=== PATIENT | female | born 1975 | race Caucasian/White ===

== ENCOUNTER 2017-03-29 10:39 | Emergency (ER) | payer BC, MEDICAID ==
[2017-03-29] MEDS ORDERED: HYDROmorphone 2 MG/ML SDV IVPUSH ONE (10:55)
[2017-03-29] MEDS ORDERED: Sodium Chloride 0.9% 1,000 ML IV SCH (11:00)
--- NOTE | 2017-03-29 11:13 | EDM.PDOC ---
ED HPI GENERAL MEDICAL PROBLEM - General Stated Complaint: MISCARRIAGE Time Seen by Provider: 03/29/17 10:49 Source of Information: Reports: Patient, Family History Limitations: Reports: Other (pelvic pain) - History of Present Illness INITIAL COMMENTS - FREE TEXT/NARRATIVE: 41 y.o w f 7 was seen a OB saford on Sunday, US showed a 6 week ols baby, by adte 9 weeks, no active bleed at hat time. this am, pt felt acute pelvic pain with vag bleed. BP 109/90 puls 87. no trauma. no drugs, no ETOH. pt stated she passed blood and tissue. she rate the pain as 10/10. 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 No N/V/D or any other acute medical issues. Onset: Today, Sudden Onset Date: 03/29/17 Onset Time: 04:00 Duration: Hour(s): Location: Reports: Pelvis Quality: Reports: Ache, Burning Severity: Severe Improves with: Reports: Medication Worsens with: Reports: Movement Context: Reports: Other () Associated Symptoms: Reports: Nausea/Vomiting lower abdomen Pain Score (Numeric/FACES): 8 - Related Data Allergies Allergy/AdvReac Type Severity Reaction Status Date / Time No Known Allergies Allergy Verified 03/29/17 11:39 Home Meds: Home Meds NK [No Known Home Meds] 03/29/17 [History] ED ROS GENERAL - Review of Systems Review Of Systems: See Below Constitutional: Reports: Weakness, Night Sweats HEENT: Reports: No Symptoms Respiratory: Reports: No Symptoms Cardiovascular: Reports: No Symptoms Endocrine: Reports: No Symptoms GI/Abdominal: Reports: Other (vag bleed) : Reports: Other (vag bleed) Musculoskeletal: Reports: No Symptoms Skin: Reports: Pallor Neurological: Reports: No Symptoms Psychiatric: Reports: No Symptoms Hematologic/Lymphatic: Reports: No Symptoms Immunologic: Reports: No Symptoms ED EXAM - Physical Exam Exam: See Below Exam Limited By: Physical Impairment General Appearance: Alert, WD/WN, Moderate Distress Course - Vital Signs Text/Narrative:: 41 y.o w f AB7 was seen a OB saford on Sunday, US showed a 6 week ols baby, by adte 9 weeks, no active bleed at hat time. this am, pt felt acute pelvic pain with vag bleed. BP 109/90 puls 87. no trauma. no drugs, no ETOH. pt stated she passed blood and tissue. she rate the pain as 10/10. 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 No N/V/D or any other acute medical issues. Last food intake this am Onset at about 9 am PE: active vag bleed, cervical os open, blood clots were left in place, pressure was applied. Labs: HGB 9.6 HCG result pending Typ/Screen pending Imaging: U/S cancelled, due to transfer to [facility] Impression: Inevitable miscarriage, Anemia, pelvic pain, active vaginal bleed. Tx: NS wide open, Dilaudid, 2 peripheral I Vs were placed Reexam: SBP dropped temp to 89 recovered quickly SBP 101, no LOC, pt was always talking duing the event, [place] position BP on transfere 110/52 puls 68 o2 100% 11.05 am Consultation was in OR, will call back later: Dr. Damian, [employer], [place]: Accepted transfer to ED 11.05 am ED [place]: [facility] did not accept the patient Plan: Transfer by EMS to ED [place]. addendum: As per EMS, pt did ok, BP on the 110/56 when she went into the ed. Last Recorded V/S: Last Vital Signs Temp 37.0 C 03/29/17 11:35 Pulse 73 03/29/17 11:35 Resp 15 03/29/17 11:35 BP 110/51 L 03/29/17 11:35 Pulse Ox 100 03/29/17 11:35 - Orders/Labs/Meds Orders: Active Orders 24 hr Category Date Time Status PATIENT RETYPE [BBK] Stat Lab 03/29/17 11:05 Results TYPE AND SCREEN [BBK] Stat Lab 03/29/17 11:05 Results Labs: Laboratory Tests 03/29/17 03/29/17 03/29/17 Range/Units 11:05 11:05 11:05 WBC 10.5 (4.5-12.0) X10-3/uL RBC 4.31 (3.23-5.20) x10(6)uL Hgb 9.6 L (11.5-15.5) g/dL Hct 30.9 (30.0-51.3) % MCV 71.8 L (80-96) fL MCH 22.3 L (27.7-33.6) pg MCHC 31.1 L (32.2-35.4) g/dL RDW 15.1 (11.5-15.5) % Plt Count 338 (125-369) X10(3)uL MPV 8.7 (7.4-10.4) fL Neut % (Auto) 73.3 (46-82) % Lymph % (Auto) 20.1 (13-37) % Jack % (Auto) 5.5 (4-12) % Eos % (Auto) 1 (1.0-5.0) % Baso % (Auto) 1 (0-2) % Neut # (Auto) 7.6 (1.6-8.3) # Lymph # (Auto) 2.1 (0.6-5.0) # Jack # (Auto) 0.6 (0.0-1.3) # Eos # (Auto) 0.1 (0.0-0.8) # Baso # (Auto) 0.1 (0.0-0.2) # PT 10.9 (8.7-11.1) INR 1.08 (0.89-1.13) Sodium 137 (135-145) mmol/L Potassium 4.0 (3.5-5.3) mmol/L Chloride 105 (100-110) mmol/L Carbon Dioxide 22 L (23-29) mmol/L BUN 8 (5-20) mg/dL Creatinine 0.5 L (0.6-1.3) mg/dL Est Cr Clr Drug Dosing TNP Estimated GFR (MDRD) > 60 (>60) BUN/Creatinine Ratio 16.0 (9-20) Glucose 114 (80-116) mg/dL Calcium 8.7 (8.6-10.2) mg/dL HCG, Quant (2.0 - ) mIU/mL Blood Type Gel Antibody Screen 03/29/17 03/29/17 Range/Units 11:05 11:05 WBC (4.5-12.0) X10-3/uL RBC (3.23-5.20) x10(6)uL Hgb (11.5-15.5) g/dL Hct (30.0-51.3) % MCV (80-96) fL MCH (27.7-33.6) pg MCHC (32.2-35.4) g/dL RDW (11.5-15.5) % Plt Count (125-369) X10(3)uL MPV (7.4-10.4) fL Neut % (Auto) (46-82) % Lymph % (Auto) (13-37) % Jack % (Auto) (4-12) % Eos % (Auto) (1.0-5.0) % Baso % (Auto) (0-2) % Neut # (Auto) (1.6-8.3) # Lymph # (Auto) (0.6-5.0) # Jack # (Auto) (0.0-1.3) # Eos # (Auto) (0.0-0.8) # Baso # (Auto) (0.0-0.2) # PT (8.7-11.1) INR (0.89-1.13) Sodium (135-145) mmol/L Potassium (3.5-5.3) mmol/L Chloride (100-110) mmol/L Carbon Dioxide (23-29) mmol/L BUN (5-20) mg/dL Creatinine (0.6-1.3) mg/dL Est Cr Clr Drug Dosing Estimated GFR (MDRD) (>60) BUN/Creatinine Ratio (9-20) Glucose (80-116) mg/dL Calcium (8.6-10.2) mg/dL HCG, Quant 9789 (2.0 - ) mIU/mL Blood Type O POSITIVE Gel Antibody Screen Negative Meds: Medications Discontinued Medications Generic Name Dose Route Start Last Admin Trade Name Freq PRN Reason Stop Dose Admin Hydromorphone HCl 2 mg 03/29/17 10:55 03/29/17 11:14 Dilaudid IVPUSH 03/29/17 10:56 2 mg ONETIME ONE Administration Sodium Chloride 1,000 mls @ 125 mls/hr 03/29/17 11:00 03/29/17 11:12 Normal Saline IV 125 mls/hr ASDIRECTED KATRINA Administration Departure - Departure Time of Disposition: 11:47 Disposition: DC/Tfer to [facility] Condition: Fair Clinical Impression: Miscarriage - Discharge Information Referrals: PCP,Not In Area [Primary Care Provider] - Forms: ED Department Discharge - My Orders Last 24 Hours: My Active Orders 03/29/17 11:05 PATIENT RETYPE [BBK] Stat TYPE AND SCREEN [BBK] Stat - Assessment/Plan Last 24 Hours: My Active Orders 03/29/17 11:05 PATIENT RETYPE [BBK] Stat TYPE AND SCREEN [BBK] Stat
== END 2017-03-29 12:05 | disposition critical access hospital (66) ==
LOC: FB.ED 10:39
DX: O03.9 Complete or unspecified spontaneous abortion without complication (principal)
CPT/HCPCS: 80048; 84702; 85025; 85610; 86850; 86900; 86901; 96361; 96374; 99285; J1170; J7040